=== PATIENT | male | born 1950 ===

== ENCOUNTER 2017-10-30 18:20 | Emergency (ER) | payer MEDICARE ==
[2017-10-30 18:33] VITALS: BP 141/85
--- NOTE | 2017-10-30 19:32 | RAD ---
HISTORY: Left-sided chest pain, shortness of breath COMPARISONS: None VIEWS: 4: Frontal dual-energy and lateral views of the chest. FINDINGS: CARDIOMEDIASTINAL SILHOUETTE: The cardiomediastinal silhouette is normal. ELIF: The elif are normal. PLEURA: The costophrenic angles are sharp. No pleural abnormalities are noted. LUNG PARENCHYMA: The lungs are clear. ABDOMEN: The upper abdomen is clear. There is no subphrenic gas. BONES AND SOFT TISSUES: No bone or soft tissue abnormalities are noted. OTHER: None. IMPRESSION: NO ACTIVE CARDIOPULMONARY DISEASE.
--- NOTE | 2017-10-30 19:38 | UC ---
Respiratory Complaint HPI - HPI Summary HPI Summary: Progressive luciano for two weeks that is worsening. he had a URI two weeks ago with a few but this resolved. He now has a mild cough. It does not hurt more with cough or deep breaths and he is c/o of left lateral chest pain. This is worse with lifting. - History of Current Complaint Chief Complaint: UCRespiratory Stated Complaint: SHORTNESS OF BREATH/PAIN LEFT SIDE RIB AREA Time Seen by Provider: 10/30/17 18:33 Hx Obtained From: Patient, Family/[employer]ician Onset/Duration: Gradual Onset, Lasting Weeks Timing: Constant Severity Initially: Moderate Severity Currently: Moderate Aggravating Factors: Exertion Alleviating Factors: Nothing Associated Signs And Symptoms: Positive: Dyspnea. Negative: Fever, Chills, Pleuritic Chest Pain, Wheezing, Hemoptysis, Dizziness, Nasal Congestion, Hoarseness - Allergies/Home Medications Allergies/Adverse Reactions: Allergies Allergy/AdvReac Type Severity Reaction Status Date / Time No Known Allergies Allergy Verified 10/30/17 18:33 Home Medications: Home Medications NK [No Home Medications Reported] 10/30/17 [History Confirmed 10/30/17] PMH/Surg Hx/FS Hx/Imm Hx Previously Healthy: Yes - Denies prior medical problems but does not have a pcp. - Surgical History Surgical History: None - Family History Known Family History: Positive: Other - No hx of PE. - Social History Lives: With Family Alcohol Use: None Substance Use Type: None Smoking Status (MU): Former Smoker Review of Systems Respiratory: Shortness Of Breath Cardiovascular: Chest Pain All Other Systems Reviewed And Are Negative: Yes Physical Exam Triage Information Reviewed: Yes Appearance: Well-Appearing, No Pain Distress, Well-Nourished Vital Signs: Initial Vital Signs Temp 98.4 F 10/30/17 18:21 Pulse 83 10/30/17 18:21 Resp 18 10/30/17 18:21 BP 141/85 10/30/17 18:21 Pulse Ox 97 10/30/17 18:21 Vital Signs Reviewed: Yes Eyes: Positive: Conjunctiva Clear ENT: Positive: Normal ENT inspection, Pharynx normal Neck exam: Normal Neck: Positive: Supple, Nontender, No Lymphadenopathy Respiratory: Positive: Lungs clear, Normal breath sounds, No respiratory distress, No accessory muscle use. Negative: Respiratory distress, Decreased breath sounds, Accessory muscle use, Crackles, Rhonchi, Stridor Cardiovascular: Positive: RRR, No Murmur, Pulses Normal Abdomen Description: Negative: Distended, Guarding Musculoskeletal: Positive: Other: - right leg multiple varicose veins. There is mild calf tenderness. Diagnostic Evaluation - Laboratory O2 Sat by Pulse Oximetry: 97 Respiratory Course/Dx - Course Course Of Treatment: sob and LUCIANO progressive without any routine primary care. Exam and studies thus far normal. There is possibility of PE or ischemic heart disease. Transfer to [place] [facility] and spoke with Chioma Calixto NP. - Differential Dx/Diagnosis Provider Diagnoses: LUCIANO. Discharge - Discharge Plan Condition: Guarded Disposition: HOME Referrals: Non Staff,Doctor [Primary Care Provider] - Additional Instructions: Progressive LUCIANO for two weeks. no prior medical care. No PCP. He was a smoker until quitting in June. Left chest pain with lifting. He has a uri a few weeks ago and has a mild lingering cough that is non productive.
== END 2017-10-30 19:39 | disposition home or self-care (01) ==
LOC: UCCORT 18:20
DX: R06.00 Dyspnea, unspecified (principal); Z87.891 Personal history of nicotine dependence
CPT/HCPCS: 71020; 93005; 99202; G0463